=== PATIENT | female | born 1955 | race Caucasian/White ===

== ENCOUNTER 2017-02-04 08:05 | Day surgery (SDC) | payer MEDICAID ==
[~2017-02-04] VITALS: Ht 161.3 cm; Wt 58.6 kg
[~2017-02-04 08:05] MED LIST: ASCO500 PO; CALC-116 PO; CLOM50 PO; D-MA50PO PO; VITA100012 PO; VITA1TAB22 PO
[2017-02-04] MEDS ORDERED: PROPOFOL 1% 20 ML VIAL IVP ONE (08:06)
[2017-02-04] MEDS ORDERED: LIDOCAINE HCL/PF 2% 5 ML VIAL INJ ONE (08:06)
[2017-02-04] MEDS ORDERED: SODIUM CHLORIDE 0.9% 1,000 ML IV ONE ×2 (08:18→08:30)
== END 2017-02-04 13:35 | disposition home or self-care (01) ==
LOC: SURGERY 08:05
PROVIDERS: ATTEND Internal Medicine Gastroenterology
DX: Z12.11 Encounter for screening for malignant neoplasm of colon (principal); K64.0 First degree hemorrhoids; J45.909 Unspecified asthma, uncomplicated; F42.9 Obsessive-compulsive disorder, unspecified; Z88.8 Allergy status to other drugs, medicaments and biological substances; Z98.890 Other specified postprocedural states; Z86.018 Personal history of other benign neoplasm; Z86.59 Personal history of other mental and behavioral disorders; Z86.19 Personal history of other infectious and parasitic diseases
CPT/HCPCS: 45378; J2704; J3490; J7030

== ENCOUNTER 2022-06-04 05:34 | Emergency (ER) | payer MEDICAID, MEDICARE, OTHER ==
[~2022-06-04] VITALS: Ht 160 cm; Wt 68.4 kg
[2022-06-04 06:49] LABS: BASOPHILS % (AUTO) 0.5 % (0.0-2.0); EOSINOPHILS % (AUTO) 0.8 % (1.0-6.0); HEMATOCRIT 39.1 % (36-46); HEMOGLOBIN 12.8 g/dL (12.0-16.0); LYMPHOCYTES # (AUTO) 0.8 K/uL (1.0-4.8); LYMPHOCYTES % (AUTO) 9.4 % (22.0-44.0); MEAN CORPUSCULAR HEMOGLOBIN 30.2 pg (26.0-34.0); MEAN CORPUSCULAR HGB CONC 32.7 G/dL (31.0-37.0); MEAN CORPUSCULAR VOLUME 92 fL (80-100); MONOCYTES # (AUTO) 0.8 K/uL (0.1-1.0); MONOCYTES % (AUTO) 8.8 % (2.0-9.0); NEUTROPHILS # (AUTO) 7.2 K/uL (1.8-7.7); NEUTROPHILS % (AUTO) 80.5 % (40.0-70.0); PLATELET COUNT (AUTO) 257 K/uL (150-450); RED BLOOD CELL COUNT(AUTO) 4.24 MIL/uL (4.00-5.20); RED CELL DISTRIBUTION WIDTH 13.2 % (11.5-14.5)
[2022-06-04 07:08] LABS: COVID AG,FIA SOURCE NASOPHARYNGEAL
[2022-06-04 07:11] LABS: ANION GAP 8 mmol/L (8-16); CALCIUM, TOTAL 9.5 mg/dL (8.8-10.5); CARBON DIOXIDE 29 mmol/L (22-29); CHLORIDE 103 mmol/L (98-107); CREATININE 0.85 mg/dL (0.60-1.30); GLOMERULAR FILTR. RATE CALC > 60 mL/min (>60); GLUCOSE,RANDOM 114 mg/dL (70-110); SODIUM SERUM 140 mmol/L (136-145); UREA NITROGEN, BLOOD 20 mg/dL (7-18)
[2022-06-04 07:18] LABS: ALANINE AMINOTRANSFERASE 21 U/L (12-78); ALBUMIN 3.7 g/dL (3.4-5.0); ALKALINE PHOSPHATASE 61 U/L (46-116); ASPARTATE AMINOTRANSFERASE 17 U/L (15-37); BILIRUBIN,TOTAL 0.4 mg/dL (0.1-1.0); CREATINE KINASE, TOTAL ONLY 45 U/L (26-192); TOTAL PROTEIN, SERUM 7.9 g/dL (6.4-8.2)
[2022-06-04] MEDS ORDERED: SODIUM CHLORIDE 0.9% 100 ML ONE (07:52)
[2022-06-04] MEDS ORDERED: IOHEXOL 350 MG/ML 100 ML VIAL ONE (07:52)
[2022-06-04 08:03] LABS: INFLUENZA TYPE A NEGATIVE FOR TYPE A (NEGATIVE); INFLUENZA TYPE B NEGATIVE FOR TYPE B (NEGATIVE)
[2022-06-04 09:00] VITALS: BP 137/81
[2022-06-04 09:19] LABS: B-TYPE NATRIURETIC PEPTIDE 209 pg/mL (0-100)
== END 2022-06-04 11:59 | disposition home or self-care (01) ==
LOC: EMS 05:34
DX: R07.89 Other chest pain (principal); M79.604 Pain in right leg; Z20.822 Contact with and (suspected) exposure to COVID-19; F32.A Depression, unspecified; Z88.8 Allergy status to other drugs, medicaments and biological substances; Z88.1 Allergy status to other antibiotic agents; Z91.018 Allergy to other foods
CPT/HCPCS: 99285; 71275; 93971; 71045; 87426; 80053; 82550; 83880; 84484; 85025; 85379; 87804; 36415; 93005; Q9967; J7050